=== PATIENT | male | born 1950 | race Caucasian/White ===

== ENCOUNTER → 2018-04-05 12:15 | Outpatient (CLI) | payer MEDICARE, OTHER, SELFPAY ==
[2018-04-05 13:37] LABS: Alanine Aminotransferase 43 IU/L (21-72); Albumin 4.6 g/dL (3.5-5.0); Albumin Globulin Ratio 1.8 (1.0-2.8); Alkaline Phosphatase 66 U/L (38-126); Aspartate Aminotransferase 30 IU/L (17-59); BUN Creatinine Ratio 12.5 (6-22); Bilirubin Total 0.6 mg/dL (0.2-1.3); Blood Urea Nitrogen 15 mg/dL (9-20); Calcium 9.9 mg/dL (8.4-10.2); Carbon Dioxide 30 mmol/L (22-32); Chloride 102 mmol/L (98-107); Cholesterol 163 mg/dL (140-199); Estimated Glomerular Filt Rate > 60.0 mL/min (>60); Globulin 2.5 g/dL (1.7-4.1); Glucose 92 mg/dL (80-110); HDL Cholesterol 62 mg/dL (40-60); HEMOLYSIS < 15 (0-50); LDL Cholesterol Calculated 75 mg/dL (<100); Potassium 4.8 mmol/L (3.4-5.1); Sodium 140 mmol/L (137-145); Total Protein 7.1 g/dL (6.3-8.2); Triglycerides 129 mg/dL (35-150)
[2018-04-05 13:46] LABS: Appearance Urine UA CLEAR; Bilirubin Urine UA NEGATIVE (NEGATIVE); Color Urine UA YELLOW; Glucose Urine UA NEGATIVE (Normal); Ketones Urine UA NEGATIVE (NEGATIVE); Leukocyte Esterase Urine UA NEGATIVE (NEGATIVE); Nitrite Urine UA Negative (Negative); Occult Blood Urine UA 1+ (Negative); Protein Urine UA NEGATIVE (Negative); Urobilinogen Urine UA 0.2 E.U./dL (0.2); pH Urine UA 5.5 (4.5-8.0)
[2018-04-05 14:07] LABS: Thyroid Stimulating Hormone 1.23 uIU/mL (0.47-4.68)
== END ==
PROVIDERS: Family Provider Family Medicine; PCP Family Medicine; Visit Provider Family Medicine
DX: E78.5 Hyperlipidemia, unspecified (principal); Z51.81 Encounter for therapeutic drug level monitoring; Z12.5 Encounter for screening for malignant neoplasm of prostate
CPT/HCPCS: 36415; 80053; 80061; 81003; 84153; 84443

== ENCOUNTER → 2019-01-02 07:03 | Outpatient (CLI) | payer MEDICARE, OTHER, SELFPAY ==
[2019-01-02 08:37] LABS: Alanine Aminotransferase 35 IU/L (21-72); Albumin 4.6 g/dL (3.5-5.0); Albumin Globulin Ratio 1.6 (1.0-2.8); Alkaline Phosphatase 70 U/L (38-126); Aspartate Aminotransferase 34 IU/L (17-59); BUN Creatinine Ratio 15.8 (6-22); Bilirubin Total 0.7 mg/dL (0.2-1.3); Blood Urea Nitrogen 19 mg/dL (9-20); Calcium 9.7 mg/dL (8.4-10.2); Carbon Dioxide 28 mmol/L (22-32); Chloride 103 mmol/L (98-107); Cholesterol 179 mg/dL (140-199); Estimated Glomerular Filt Rate > 60.0 mL/min (>60); Globulin 2.8 g/dL (1.7-4.1); Glucose 95 mg/dL (80-110); HDL Cholesterol 52 mg/dL (40-60); HEMOLYSIS < 15 (0-50); LDL Cholesterol Calculated 104 mg/dL (<100); Potassium 4.2 mmol/L (3.4-5.1); Sodium 140 mmol/L (137-145); Total Protein 7.4 g/dL (6.3-8.2); Triglycerides 117 mg/dL (35-150)
== END ==
PROVIDERS: Visit Provider Family Medicine
DX: E78.5 Hyperlipidemia, unspecified (principal); Z51.81 Encounter for therapeutic drug level monitoring
CPT/HCPCS: 36415; 80053; 80061

== ENCOUNTER → 2019-07-17 08:17 | Outpatient (CLI) | payer MEDICARE, OTHER, SELFPAY ==
[2019-07-17 08:50] LABS: Add Manual Diff / Slide Review NO; Basophils Absolute Auto 0 /uL (0-100); Basophils Percent Auto 0.2 % (0-2); Eosinophils Absolute Auto 100 /uL (0-450); Eosinophils Percent Auto 1.9 % (2-4); Hemoglobin 16.6 g/dL (13.5-17.5); Lymphocytes Absolute Auto 900 /uL (1100-4500); Lymphocytes Percent Auto 19.7 % (25-40); Mean Corpuscular HGB Conc 33.9 % (30-36); Mean Corpuscular Hemoglobin 32.1 PG (26-34); Mean Corpuscular Volume 94.9 fL (80-100); Monocytes Absolute Auto 400 /uL (0-900); Neutrophils Absolute Auto 3000 /uL (1500-7000); Neutrophils Percent Auto 69.2 % (50-75); Platelet Count 132 X10^3/uL (150-400); Red Blood Cell Count 5.17 X10^6/uL (4.5-5.9); Red Cell Distribution Width 14.6 % (11.6-14.8); White Blood Cell Count 4.4 X10^3/uL (4.5-11.0)
[2019-07-17 09:16] LABS: Alanine Aminotransferase 32 IU/L (<50); Albumin 4.6 g/dL (3.5-5.0); Albumin Globulin Ratio 1.7 (1.0-2.8); Alkaline Phosphatase 77 U/L (38-126); Aspartate Aminotransferase 35 IU/L (17-59); BUN Creatinine Ratio 13.1 (6-22); Bilirubin Total 0.7 mg/dL (0.2-1.3); Blood Urea Nitrogen 17 mg/dL (9-20); Calcium 9.9 mg/dL (8.4-10.2); Carbon Dioxide 30 mmol/L (22-32); Chloride 101 mmol/L (98-107); Cholesterol 184 mg/dL (140-199); Estimated Glomerular Filt Rate 54.6 mL/min (>60); Globulin 2.7 g/dL (1.7-4.1); Glucose 102 mg/dL (80-110); HDL Cholesterol 54 mg/dL (40-60); HEMOLYSIS < 15 (0-50); LDL Cholesterol Calculated 100 mg/dL (<100); Potassium 4.4 mmol/L (3.4-5.1); Sodium 139 mmol/L (137-145); Total Protein 7.3 g/dL (6.3-8.2); Triglycerides 151 mg/dL (35-150)
[2019-07-17 09:44] LABS: Thyroid Stimulating Hormone 2.02 uIU/mL (0.47-4.68)
[2019-07-17 09:45] LABS: Prostate Specific Antigen 2.11 ng/mL (0.10-4.00)
== END ==
PROVIDERS: PCP Family Medicine; Visit Provider Family Medicine
DX: Z12.5 Encounter for screening for malignant neoplasm of prostate (principal); E78.5 Hyperlipidemia, unspecified; G47.33 Obstructive sleep apnea (adult) (pediatric); G47.19 Other hypersomnia; Z79.899 Other long term (current) drug therapy
CPT/HCPCS: 36415; 80053; 80061; 84153; 84443; 85025

== ENCOUNTER 2019-12-29 19:29 | Emergency (ER) | payer MEDICARE, OTHER, SELFPAY ==
[2019-12-29 19:35] VITALS: BP 162/92; PULSE 95; RESP 16; TEMP 37.4; O2SAT 96; BMI 34.9
--- NOTE | 2019-12-29 19:40 | DI.RAD.S_ITS ---
PROCEDURE: XR RIBS RT MIN 3V W CXR 1V INDICATIONS: fall with right sided rib pain TECHNIQUE: 2 views of the right ribs were acquired, along with a single view chest. COMPARISON: [facility], , CHEST 1 VIEW, 09/14/2014, 10:42. FINDINGS: Surgical changes and devices: None. Bones and chest wall: Lateral right seventh rib fracture. A possible posterior right sixth rib fracture, minimally displaced. Lungs and pleura: No pleural effusions or pneumothorax. Lungs appear clear. Mediastinum: Mediastinal contours appear normal. Heart size is normal. IMPRESSION: Lateral right seventh rib fracture Possible minimally displaced posterior right sixth rib fracture, however this finding technically indeterminate No pneumothorax Dictated by: Miguel Rojas M.D. on 12/29/2019 at 20:28 Approved by: Miguel Rojas M.D. on 12/29/2019 at 20:32
--- NOTE | 2019-12-29 19:40 | DI.CT.S_ITS ---
PROCEDURE: CT CERVICAL SPINE WO CON INDICATIONS: fall with head injury TECHNIQUE: Noncontrast 3 mm thick sections acquired from the skull base to the T4 level. Sagittal and coronal reformats were then constructed. For radiation dose reduction, the following was used: automated exposure control, adjustment of mA and/or kV according to patient size. COMPARISON: None. FINDINGS: Image quality: Excellent. Bones: No fractures or dislocations. Visualized superior ribs are intact. Diffuse spondylosis, and reversal of the normal cervical lordosis. Prominent ossification of the posterior longitudinal ligament primarily from C5-C7. Soft tissues: Prevertebral soft tissues are normal in thickness. No paravertebral hematomas. No apical pneumothoraces. IMPRESSION: Cervical spondylosis and facet arthropathy. 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 on 12/29/2019 at 20:22 Approved by: Miguel Rojas M.D. on 12/29/2019 at 20:28
--- NOTE | 2019-12-29 19:40 | DI.CT.S_ITS ---
PROCEDURE: CT HEAD/BRAIN WO CON INDICATIONS: fall from height, head injury, aspirin TECHNIQUE: Noncontrast 4.5 mm thick angled axial sections acquired from the foramen magnum to the vertex, with coronal and sagittal reformats. For radiation dose reduction, the following was used: automated exposure control, adjustment of mA and/or kV according to patient size. COMPARISON: None. FINDINGS: Image quality: Excellent. CSF spaces: Basal cisterns are patent. No extra-axial fluid collections. The ventricles are symmetric in size and shape. Brain: No intracranial bleeds or masses. There is cerebral volume loss for age, with resultant ventricular and sulcal prominence. There are periventricular and deep white matter chronic small vessel ischemic changes. There is intracranial internal carotid artery atherosclerosis. Skull and face: Calvarium and visualized facial bones appear intact, without suspicious lesions. Right frontal scalp laceration and soft tissue swelling Sinuses: Visualized sinuses and mastoids are clear. IMPRESSION: No acute intracranial process. Right frontal scalp laceration and swelling. Dictated by: Miguel Rojas M.D. on 12/29/2019 at 20:18 Approved by: Miguel Rojas M.D. on 12/29/2019 at 20:22
--- NOTE | 2019-12-29 19:53 | ED.HEATRA ---
HPI - Head Injury General Chief complaint: Trauma Stated complaint: Fell And Cracked Head Open Time Seen by Provider: 12/29/19 19:37 Source: patient Mode of arrival: Ambulatory Limitations: no limitations History of Present Illness HPI Narrative: 69-year-old male nonsmoker with history of hyperlipidemia and obstructive sleep apnea takes aspirin daily and presents with a chief complaint of a head injury with some right-sided rib pain. He was about 8 ft up on a ladder when it slid to the side causing him to fall on his right side ribs and hit his head. He does not think he lost consciousness, if he did it was very brief. He denies nausea, vomiting. He has no shortness of breath or abdominal pain. He denies any extremity injury. Activated as modified trauma based on mechanism Related Data Home Medications Medication Instructions Recorded Confirmed ASPIRIN (Aspir-Low) 81 mg PO QDAY #0 tab 06/20/13 10/07/19 multivitamin [Multiple Vitamins] 1 tab PO QDAY #0 03/20/17 10/07/19 mupirocin 2 % topical ointment 1 applictn TOP BID PRN 01/06/19 10/07/19 ResMed AirSense 10 AutoSet CPAP #1 ea 10/07/19 10/07/19 Previous Rx's Medication Instructions Recorded ketoconazole 2 % topical cream 1 applictn TOP DAILY #30 gram 01/06/19 atorvastatin 20 mg tablet 20 mg PO Q DAY #90 tab 10/14/19 cephalexin [Keflex] 500 mg PO QID 7 Days #28 cap 12/29/19 hydrocodone-acetaminophen 1 tab PO Q4-6H PRN #10 tab 12/29/19 Allergies Allergy/AdvReac Type Severity Reaction Status Date / Time No Known Allergies Allergy Uncoded 10/07/19 09:30 Review of Systems Constitutional Constitutional: Denies chills, Denies fatigue, Denies fever(s), Denies frequent falls, Denies lethargy and Denies weakness Eyes Eyes: Denies change in vision, Denies eye discharge, Denies irritation and Denies loss of vision ENT Ears, Nose, Mouth, and Throat: Denies change in voice, Denies dizziness, Denies neck pain, Denies sore throat and Denies throat swelling Cardiovascular Cardiovascular: Reports chest pain, Denies irregular heart rhythm, Denies lightheadedness, Denies palpitations, Denies dyspnea, Denies dyspnea on exertion and Denies orthopnea Respiratory Respiratory: Denies cough, Denies dyspnea, Denies dyspnea on exertion and Denies wheezing Gastrointestinal Gastrointestinal: Denies abdominal pain, Denies change in bowel habits, Denies diarrhea, Denies nausea and Denies vomiting Genitourinary Genitourinary: Denies hematuria, Denies flank pain, Denies urinary incontinence and Denies urinary urgency Musculoskeletal Musculoskeletal: Denies back pain, Denies muscle weakness, Denies neck pain, Denies numbness and Denies tingling Integumentary/Breasts Skin/Breast: Denies pruritus, Denies erythema, Denies rash and Reports wounds Neurologic Neurologic: Denies behavioral changes, Denies confusion, Denies dizziness, Denies frequent falls, Denies loss of vision, Denies numbness, Denies tingling and Denies weakness Psychiatric Psychiatric: Denies anxiety, Denies behavioral changes, Denies confusion, Denies depression, Denies homicidal ideation and Denies suicidal ideation Endocrine Endocrine: Denies fatigue, Denies flushing and Denies palpitations Hematologic/Lymphatic Hematologic/Lymphatic: Denies easy bruising Allergic/Immunologic Allergic/Immunologic: Denies urticaria, Denies throat swelling and Denies wheezing Patient History Medical History Cataracts, bilateral (Chronic) Colon polyps (Resolved) Excessive daytime sleepiness (Inactive) Hx of gonorrhea (Resolved) Hyperlipemia (Chronic) Obstructive sleep apnea of adult (Chronic) Polio (Resolved 1954) Snoring (Inactive) Family History Family/Other Adopted Social History marital status: details: to [place], lives in [place] household members: spouse and adopted family (greatest challenge is ~14yoF from [facility]) lives independently: Yes caregiver/support person: No housing: house occupational status: employed (retired now, 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 Well-nourished, well-developed patient, in mild distress. GCS 15 HEAD:3cm deep laceration on R forehead with minimal active bleeding. No depressed fracture. EYES: Pupils equal round and reactive. Extraocular motions intact. No scleral icterus. No injection or drainage. ENT: Nose without bleeding, purulent drainage. No nasal septal hematoma. Throat without erythema, tonsillar hypertrophy or exudate. Airway patent. No hemotympanum NECK: Trachea midline. Non tender CARDIOVASCULAR: Regular rate and rhythm without murmurs, gallops, or rubs. RESPIRATORY: Clear to auscultation. Breath sounds equal bilaterally. No wheezes, rales, or rhonchi. R lateral ribs tender to palpation GASTROINTESTINAL: Abdomen soft, non-tender, nondistended. EXTREMITIES: No edema or joint tenderness. BACK: Nontender without deformity or crepitance. No flank tenderness. NEURO: AOx3. SKIN: No rash or erythema of visible areas Initial Vital Signs Initial Vital Signs: Vital Signs Temperature 99.3 F 12/29/19 19:35 Pulse Rate 95 H 12/29/19 19:35 Respiratory Rate 16 12/29/19 19:35 Blood Pressure 162/92 H 12/29/19 19:35 Pulse Oximetry 96 12/29/19 19:35 Procedures Laceration Repair Laceration 1: Site: face Side (If applicable): right Size (cm): 3 Description: linear Depth: involves muscle layer Local Anesthetic: lidocaine 1% and with bicarb Amount of anesthesia used (mL): 4 Pre-repair: wound explored, irrigated extensively and deep structures intact Skin layer closed with: nylon Size (cm): 6-0 Number of sutures: 7 Technique: simple, interrupted Subcutaneous layer closed with: vicryl Size: 5-0 Number of sutures: 3 Technique: simple, interrupted Scores GCS Nahed coma scale eye opening: Spontaneous Mulga coma scale verbal response: Orientated Nahed coma scale motor response: Obey commands Nahed coma scale total score: 15 Course Orders Ordered: ED Orders 12/29/19 19:40 CT cervical spine wo con Stat CT head/brain wo con Stat XR ribs RT min 3V w CXR1V Stat Discontinued Medications Cefazolin Sodium (Keflex 250 Mg Prepack) 1 bottle MISC SEEINSTR ONE Stop: 12/29/19 20:30 Last Admin: 12/29/19 20:38 Dose: 1 bottle Documented by: TIFFANIE Diphtheria/Tetanus/Acell Pertussis (Adacel) 0.5 ml IM .ONCE ONE Stop: 12/29/19 19:58 Last Admin: 12/29/19 20:04 Dose: 0.5 ml Documented by: TIFFANIE Lidocaine/Sodium Bicarbonate (Buffered Lidocaine 10 Ml Syr) 10 ml INJ NOW ONE Stop: 12/29/19 19:58 Last Admin: 12/29/19 20:04 Dose: 10 ml Documented by: TIFFANIE Vital Signs Vital signs: Vital Signs - 8 hr 12/29/19 19:35 12/29/19 20:44 Temperature 99.3 F Pulse Rate 95 H 77 Respiratory Rate 16 16 Blood Pressure 162/92 H 123/77 Pulse Oximetry 96 97 MDM - Head Injury Imaging Data CT scan - head: Radiologist's Impression: [address] [address] [address] Scan Report Signed Patient: Baldemar Andersen R#: [id number] : 9Acct:[id number] Age/Sex: 69 / MDate of Service: 12/29/19 Loc: ED Accession Number: [id number] Procedure: CT head/brain wo con Ordering Provider: Rubén Melgar D.O. PROCEDURE: CT HEAD/BRAIN WO CON INDICATIONS: fall from height, head injury, aspirin TECHNIQUE: Noncontrast 4.5 mm thick angled axial sections acquired from the foramen magnum to the vertex, with coronal and sagittal reformats. For radiation dose reduction, the following was used: automated exposure control, adjustment of mA and/or kV according to patient size. COMPARISON: None. FINDINGS: Image quality: Excellent. CSF spaces: Basal cisterns are patent. No extra-axial fluid collections. The ventricles are symmetric in size and shape. Brain: No intracranial bleeds or masses. There is cerebral volume loss for age, with resultant ventricular and sulcal prominence. There are periventricular and deep white matter chronic small vessel ischemic changes. There is intracranial internal carotid artery atherosclerosis. Skull and face: Calvarium and visualized facial bones appear intact, without suspicious lesions. Right frontal scalp laceration and soft tissue swelling Sinuses: Visualized sinuses and mastoids are clear. IMPRESSION: No acute intracranial process. Right frontal scalp laceration and swelling. Dictated by: Miguel Rojas M.D. on 12/29/2019 at 20:18 Approved by: Miguel Rojas M.D. on 12/29/2019 at 20:22 CT - cervical spine: Radiologist's Impression: [facility] DATE TYPE STATUS AUTHOR Hx 12/29/19 19:40 Migule Rojas 12/29/19 19:40 BobMiguel 12/29/19 19:40 Miguel Rojas Wilfred H 69, M109/11/1949 [facility] 172.72cm 104.326kg BMI: 35.0kg/m? Trauma Search Chart Preferred Name NF - Not included in interaction checking ONSET 12/29/19 20:44 Baldemar Andersen 69 M 1950 [place] [address] CT Scan Report Signed Patient: Baldemar Andersen HMR#: [id number] : 1950cct:[id number] Age/Sex: 69 / MDate of Service: 12/29/19 Loc: ED Accession Number: [id number] Procedure: CT cervical spine wo con Ordering Provider: Rubén Melgar D.O. PROCEDURE: CT CERVICAL SPINE WO CON INDICATIONS: fall with head injury TECHNIQUE: Noncontrast 3 mm thick sections acquired from the skull base to the T4 level. Sagittal and coronal reformats were then constructed. For radiation dose reduction, the following was used: automated exposure control, adjustment of mA and/or kV according to patient size. COMPARISON: None. FINDINGS: Image quality: Excellent. Bones: No fractures or dislocations. Visualized superior ribs are intact. Diffuse spondylosis, and reversal of the normal cervical lordosis. Prominent ossification of the posterior longitudinal ligament primarily from C5-C7. Soft tissues: Prevertebral soft tissues are normal in thickness. No paravertebral hematomas. No apical pneumothoraces. IMPRESSION: Cervical spondylosis and facet arthropathy. 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 on 12/29/2019 at 20:22 Approved by: Miguel Rojas M.D. on 12/29/2019 at 20:28 Chest x-ray: Radiologist's Impression: Chart Viewer Diagnostics DATE TYPE STATUS AUTHOR Blanca 12/29/19 19:40 Miguel Rojas 12/29/19 19:40 Miguel Rojas 12/29/19 19:40 Miguel Rojas Wilfred H 69, M109/11/1949 [facility], [facility] ED 172.72cm 104.326kg BMI: 35.0kg/m? Trauma Search Chart Preferred Name NF - Not included in interaction checking ONSET 12/29/19 20:44 Baldemar Andersen H 69 M [address] [address] XRay Report Signed Patient: Baldemar Andersen HMR#: [id number] : 1950cct:[id number] Age/Sex: 69 / MDate of Service: 12/29/19 Loc: ED Accession Number: [id number] Procedure: XR ribs RT min 3V w CXR1V Ordering Provider: Rubén Melgar D.O. PROCEDURE: XR RIBS RT MIN 3V W CXR 1V INDICATIONS: fall with right sided rib pain TECHNIQUE: 2 views of the right ribs were acquired, along with a single view chest. COMPARISON: [facility], , CHEST 1 VIEW, 09/14/2014, 10:42. FINDINGS: Surgical changes and devices: None. Bones and chest wall: Lateral right seventh rib fracture. A possible posterior right sixth rib fracture, minimally displaced. Lungs and pleura: No pleural effusions or pneumothorax. Lungs appear clear. Mediastinum: Mediastinal contours appear normal. Heart size is normal. IMPRESSION: Lateral right seventh rib fracture Possible minimally displaced posterior right sixth rib fracture, however this finding technically indeterminate No pneumothorax Dictated by: Miguel Rojas M.D. on 12/29/2019 at 20:28 Approved by: Miguel Rojas M.D. on 12/29/2019 at 20:32 Discharge Plan Departure Patient Disposition: Home Clinical Impression: Laceration of scalp Qualifiers: Encounter type: initial encounter Qualified Code(s): S01.01XA - Laceration without foreign body of scalp, initial encounter Right rib fracture Qualifiers: Encounter type: initial encounter Rib fracture type: single rib Fracture type: closed Qualified Code(s): S22.31XA - Fracture of one rib, right side, initial encounter for closed fracture Discharge Date/Time: 12/29/19 20:45 Instructions: DI for Trauma Activity Restrictions/Additional Instructions: *You have been diagnosed with [fall with scalp laceration and right rib fracture] *What to do: *Take medications as directed *Follow up with your primary care provider in 2-3 days, call for an appointment. Let them know you were seen in the Emergency Department and that we ask that you be seen in follow up *Return to ER if you should have any new, worsening or concerning symptoms, such as [ ] Please keep the wound clean and dry to the best of your ability. Please monitor for signs of infection such as redness to the skin or increasing pain. Have the sutures removed by your doctor in about 7 days. If you are unable to get into your doctor, we would be happy to remove the sutures in that same timeframe. Prescriptions: New cephalexin [Keflex] 500 mg capsule 500 mg PO QID 7 Days Qty: 28 RF: 0 hydrocodone-acetaminophen 5-325 mg tablet 1 tab PO Q4-6H PRN (Reason: pain) Qty: 10 RF: 0 No Action ASPIRIN (Aspir-Low) 81 mg PO QDAY Qty: 0 RF: 0 multivitamin [Multiple Vitamins] 1 EACH tablet 1 tab PO QDAY Qty: 0 RF: 0 atorvastatin [Lipitor] 20 mg tablet 20 mg PO Q DAY Qty: 90 RF: 0 mupirocin 2 % ointment 1 applictn TOP BID PRNRF: 0 ketoconazole 2 % cream 1 applictn TOP DAILY Qty: 30 RF: 2 (DME) ResMed AirSense 10 AutoSet CPAP Qty: 1 RF: 0
[2019-12-29] MEDS: TET,DIPH,PERTUSS(ACELL),VAC/PF 0.5 ML SYRINGE IM (20:04)
[2019-12-29] MEDS: LIDO 1%/SOD BICARB 8.4% (10ML) 10 ML SYRINGE INJ (20:04)
[2019-12-29] MEDS: cephALEXin 250 MG PREPACK 1 BOTTLE MISC (20:38)
[2019-12-29 20:44] VITALS: BP 123/77; PULSE 77; RESP 16; O2SAT 97
== END 2019-12-29 20:45 | disposition home or self-care (01) ==
PROVIDERS: Emergency Provider Emergency Medicine
DX: S01.81XA Laceration without foreign body of other part of head, initial encounter (principal); S22.31XA Fracture of one rib, right side, initial encounter for closed fracture; W11.XXXA Fall on and from ladder, initial encounter; Z79.82 Long term (current) use of aspirin; Z23 Encounter for immunization; E78.5 Hyperlipidemia, unspecified
CPT/HCPCS: 13132; 70450; 71101; 72125; 90471; 99284; 90715

== ENCOUNTER → 2020-03-11 07:28 | Outpatient (CLI) | payer MEDICARE, OTHER, SELFPAY ==
[2020-03-11 08:30] LABS: Add Manual Diff / Slide Review NO; Basophils Absolute Auto 0 /uL (0-100); Basophils Percent Auto 0.4 % (0-2); Eosinophils Absolute Auto 100 /uL (0-450); Eosinophils Percent Auto 2.2 % (2-4); Hematocrit 46.1 % (41-53); Hemoglobin 15.7 g/dL (13.5-17.5); Lymphocytes Absolute Auto 900 /uL (1100-4500); Lymphocytes Percent Auto 21.8 % (25-40); Mean Corpuscular Hemoglobin 32.4 PG (26-34); Mean Corpuscular Volume 95.3 fL (80-100); Monocytes Absolute Auto 400 /uL (0-900); Monocytes Percent Auto 9.3 % (3-14); Neutrophils Absolute Auto 2700 /uL (1500-7000); Neutrophils Percent Auto 66.3 % (50-75); Platelet Count 128 X10^3/uL (150-400); Red Blood Cell Count 4.84 X10^6/uL (4.5-5.9); Red Cell Distribution Width 14.8 % (11.6-14.8); White Blood Cell Count 4.1 X10^3/uL (4.5-11.0)
[2020-03-11 08:41] LABS: Alanine Aminotransferase 31 IU/L (<50); Albumin 4.3 g/dL (3.5-5.0); Albumin Globulin Ratio 1.6 (1.0-2.8); Alkaline Phosphatase 87 U/L (38-126); Aspartate Aminotransferase 34 IU/L (17-59); BUN Creatinine Ratio 15.6 (6-22); Bilirubin Total 0.5 mg/dL (0.2-1.3); Blood Urea Nitrogen 19 mg/dL (9-20); Calcium 9.6 mg/dL (8.4-10.2); Carbon Dioxide 29 mmol/L (22-32); Chloride 104 mmol/L (98-107); Cholesterol 171 mg/dL (140-199); Estimated Glomerular Filt Rate 58.7 mL/min (>60); Globulin 2.7 g/dL (1.7-4.1); Glucose 108 mg/dL (80-110); HDL Cholesterol 55 mg/dL (40-60); HEMOLYSIS < 15 (0-50); LDL Cholesterol Calculated 91 mg/dL (<100); Potassium 4.1 mmol/L (3.4-5.1); Sodium 140 mmol/L (137-145); Triglycerides 126 mg/dL (35-150)
== END ==
PROVIDERS: PCP Family Medicine; Referring Provider Family Medicine; Visit Provider Family Medicine
DX: E78.5 Hyperlipidemia, unspecified (principal); G47.33 Obstructive sleep apnea (adult) (pediatric)
CPT/HCPCS: 36415; 80053; 80061; 85025

== ENCOUNTER → 2020-08-30 08:12 | Outpatient (CLI) | payer MEDICARE, OTHER, SELFPAY ==
[2020-08-30 09:33] LABS: Add Manual Diff / Slide Review NO; Basophils Absolute Auto 0 /uL (0-100); Basophils Percent Auto 0.4 % (0-2); Eosinophils Absolute Auto 100 /uL (0-450); Eosinophils Percent Auto 1.5 % (2-4); Hematocrit 44.4 % (41-53); Lymphocytes Absolute Auto 900 /uL (1100-4500); Lymphocytes Percent Auto 21.4 % (25-40); Mean Corpuscular HGB Conc 33.8 % (30-36); Mean Corpuscular Hemoglobin 32.1 PG (26-34); Mean Corpuscular Volume 94.9 fL (80-100); Monocytes Absolute Auto 400 /uL (0-900); Monocytes Percent Auto 9.1 % (3-14); Neutrophils Absolute Auto 2700 /uL (1500-7000); Neutrophils Percent Auto 67.6 % (50-75); Platelet Count 121 X10^3/uL (150-400); Red Blood Cell Count 4.68 X10^6/uL (4.5-5.9); Red Cell Distribution Width 14.7 % (11.6-14.8)
[2020-08-30 09:47] LABS: Alanine Aminotransferase 25 IU/L (<50); Albumin 4.2 g/dL (3.5-5.0); Albumin Globulin Ratio 1.7 (1.0-2.8); Alkaline Phosphatase 72 U/L (38-126); Aspartate Aminotransferase 28 IU/L (17-59); BUN Creatinine Ratio 13.3 (6-22); Bilirubin Total 0.6 mg/dL (0.2-1.3); Blood Urea Nitrogen 17 mg/dL (9-20); Calcium 9.5 mg/dL (8.4-10.2); Carbon Dioxide 30 mmol/L (22-32); Chloride 104 mmol/L (98-107); Cholesterol 163 mg/dL (140-199); Estimated Glomerular Filt Rate 55.4 mL/min (>60); Globulin 2.5 g/dL (1.7-4.1); Glucose 99 mg/dL (80-110); HDL Cholesterol 57 mg/dL (40-60); HEMOLYSIS < 15 (0-50); LDL Cholesterol Calculated 79 mg/dL (<100); Potassium 4.2 mmol/L (3.4-5.1); Sodium 138 mmol/L (137-145); Total Protein 6.7 g/dL (6.3-8.2); Triglycerides 133 mg/dL (35-150)
== END ==
PROVIDERS: PCP Family Medicine; Referring Provider Family Medicine; Visit Provider Family Medicine
DX: E78.5 Hyperlipidemia, unspecified (principal); G47.33 Obstructive sleep apnea (adult) (pediatric)
CPT/HCPCS: 36415; 80053; 80061; 85025

== ENCOUNTER → 2021-10-01 11:41 | Outpatient (CLI) | payer MEDICARE, OTHER, SELFPAY ==
[2021-10-01 12:08] LABS: COVID19 -Nasal RAPID POSITIVE (Negative)
== END ==
PROVIDERS: PCP Family Medicine; Visit Provider Physician Assistant
DX: Z20.822 Contact with and (suspected) exposure to COVID-19 (principal)
CPT/HCPCS: 87635

== ENCOUNTER → 2021-10-11 08:19 | Outpatient (CLI) | payer MEDICARE, OTHER, SELFPAY ==
[2021-10-11 11:06] LABS: Add Manual Diff / Slide Review NO; Basophils Absolute Auto 0 /uL (0-100); Basophils Percent Auto 0.3 % (0-2); Eosinophils Absolute Auto 0 /uL (0-450); Eosinophils Percent Auto 1.2 % (2-4); Hematocrit 44.1 % (41-53); Hemoglobin 15.1 g/dL (13.5-17.5); Lymphocytes Absolute Auto 700 /uL (1100-4500); Lymphocytes Percent Auto 19.4 % (25-40); Mean Corpuscular HGB Conc 34.3 % (30-36); Mean Corpuscular Hemoglobin 32.2 PG (26-34); Mean Corpuscular Volume 93.8 fL (80-100); Monocytes Absolute Auto 400 /uL (0-900); Monocytes Percent Auto 10.7 % (3-14); Neutrophils Absolute Auto 2600 /uL (1500-7000); Neutrophils Percent Auto 68.4 % (50-75); Platelet Count 142 X10^3/uL (150-400); Red Blood Cell Count 4.71 X10^6/uL (4.5-5.9); Red Cell Distribution Width 14.9 % (11.6-14.8); White Blood Cell Count 3.7 X10^3/uL (4.5-11.0)
[2021-10-11 11:19] LABS: Alanine Aminotransferase 43 IU/L (<50); Albumin 4.2 g/dL (3.5-5.0); Albumin Globulin Ratio 1.7 (1.0-2.8); Alkaline Phosphatase 76 U/L (38-126); Aspartate Aminotransferase 37 IU/L (17-59); BUN Creatinine Ratio 11.6 (6-22); Bilirubin Total 0.5 mg/dL (0.2-1.3); Blood Urea Nitrogen 14 mg/dL (9-20); Calcium 9.7 mg/dL (8.4-10.2); Carbon Dioxide 29 mmol/L (22-32); Chloride 104 mmol/L (98-107); Estimated Glomerular Filt Rate 58.9 mL/min (>60); Globulin 2.5 g/dL (1.7-4.1); Glucose 101 mg/dL (80-110); HEMOLYSIS < 15 (0-50); Potassium 4.6 mmol/L (3.4-5.1); Sodium 139 mmol/L (137-145); Total Protein 6.7 g/dL (6.3-8.2)
== END ==
PROVIDERS: PCP Family Medicine; Referring Provider Family Medicine; Visit Provider Family Medicine
DX: E78.5 Hyperlipidemia, unspecified (principal)
CPT/HCPCS: 36415; 80053; 85025

== ENCOUNTER 2021-10-13 09:30 | Emergency (ER) | payer MEDICARE, OTHER, SELFPAY ==
[2021-10-13] VITALS (64 sets, daily range): BP systolic 75–182; BP diastolic 46–103; PULSE 44–93; RESP 7–24; TEMP 36.6; O2SAT 94–100; BMI 33.4
--- NOTE | 2021-10-13 09:31 | DI.RAD.S_ITS ---
PROCEDURE: XR CHEST 1V INDICATIONS: Chest tightness TECHNIQUE: One view of the chest was acquired. COMPARISON: [facility], , CHEST 1 VIEW, 09/14/2014, 10:42. FINDINGS: Surgical changes and devices: None. Lungs and pleura: Chronic mild elevation of right hemidiaphragm is seen. No focal infiltrate. No pleural effusions or pneumothorax. Mediastinum: Mediastinal contours appear normal. Heart size is normal. Bones and chest wall: No suspicious bony lesions. Overlying soft tissues appear unremarkable. IMPRESSION: No acute cardiopulmonary pathology. Dictated by: Amador Tomas M.D. on 10/13/2021 at 10:29 Approved by: Amador Tomas M.D. on 10/13/2021 at 10:29
--- NOTE | 2021-10-13 09:50 | ED.CHESTPAIN ---
HPI - Chest Pain General Chief Complaint: Chest Pain Stated Complaint: Tightness in chest Time Seen by Provider: 10/13/21 09:30 Source: patient Mode of arrival: Ambulatory Limitations: no limitations History of Present Illness HPI narrative: 71-year-old male who is here for evaluation of tightness in his chest. Patient states that the symptoms started approximately 1 hour ago. He also has pain in his jaw all. He describes it as a tightness. Not worse with taking a deep breath. He has no shortness of breath. No cough. No radiation to his arm or his back. No nausea vomiting. No abdominal pain. He states that he had similar symptoms on Sunday evening that he had to sit down and rest but it eventually got better on its own. He was positive for COVID approximately 10 days ago. No cardiovascular history. Is on high cholesterol medicine but no blood pressure medication. Has not tried anything for symptoms prior to arrival. Related Data Home Medications Medication Instructions Recorded Confirmed ASPIRIN (Aspir-Low) 81 mg PO QDAY #0 tab 06/20/13 10/01/21 multivitamin (Multiple Vitamins) 1 tab PO QDAY #0 03/20/17 10/01/21 mupirocin 2 % topical ointment 1 applictn TOP BID PRN 01/06/19 10/01/21 ResMed AirSense 10 AutoSet CPAP #1 ea 10/07/19 10/01/21 Previous Rx's Medication Instructions Recorded ketoconazole 2 % topical cream 1 applic TOP DAILY #60 g 09/08/20 atorvastatin 20 mg tablet (Lipitor) 20 mg PO Q DAY #90 tab 08/29/21 Allergies Allergy/AdvReac Type Severity Reaction Status Date / Time No Known Drug Allergies Allergy Verified 10/13/21 09:38 Review of Systems Review of Systems ROS Unobtainable: All systems reviewed & are unremarkable except as noted in HPI and below Constitutional Constitutional: Denies fever(s) and Denies headache(s) ENT Ears, Nose, Mouth, and Throat: Denies headache(s) Cardiovascular Cardiovascular: Reports as per HPI and Reports system reviewed and no additional complaints, except as documented Respiratory Respiratory: Reports as per HPI and Reports system reviewed and no additional complaints, except as documented Gastrointestinal Gastrointestinal: Reports as per HPI and Reports system reviewed and no additional complaints, except as documented Musculoskeletal Musculoskeletal: Reports system reviewed and no additional complaints, except as documented and Reports as per HPI Integumentary/Breasts Comments: Does have a rash that he is under the care of dermatology. Neurologic Neurologic: Denies headache(s) Endocrine Endocrine: Reports system reviewed and no additional complaints, except as documented Hematologic/Lymphatic On Anticoagulants: No Allergic/Immunologic Allergic/Immunologic: Reports system reviewed and no additional complaints, except as documented Patient History Medical History Actinic keratosis due to exposure to sunlight Actinic keratosis of left cheek Actinic keratosis of right side of forehead Arthritis of finger of right hand Cataracts, bilateral Colon polyps Excessive daytime sleepiness Hx of gonorrhea Hyperlipemia Obstructive sleep apnea of adult Pain of finger joint Polio (1954) Snoring Family History Family/Other Adopted Mother Diabetes mellitus Father Heart disease Congestive heart failure Social History marital status: details: to Shilpa, lives in [place] household members: spouse and adopted family (greatest challenge is ~15yoF from [facility]) lives independently: Yes caregiver/support person: No housing: house occupational status: employed (retired now, 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) Smoking Status: Never smoker alcohol intake: current (Occasional) substance use type: does not use Smoking Status: Never smoker alcohol intake frequency: holidays/special occasions only Substance Use Type: does not use Exam Initial Vital Signs Initial Vital Signs: Vital Signs Temperature 97.8 F 10/13/21 09:32 Pulse Rate 73 10/13/21 09:32 Respiratory Rate 18 10/13/21 09:32 Blood Pressure 182/93 H 10/13/21 09:32 Pulse Oximetry 96 10/13/21 09:32 Const General: cooperative and diaphoretic HENMT Head: normal to inspection and normocephalic Eyes General: appearance normal, both eyes and all related structures Neck Neck: normal visual inspection Chest Chest: normal inspection of the chest Resp Effort & Inspection: normal respiratory effort Auscultation: clear to auscultation bilaterally Cardio Rate: regular rate Rhythm: regular rhythm GI Palpation: soft and No tender Skin Other: Patient with a rash located across his forehead. No vesicles. No pustules. Neuro General: patient alert, patient awake, patient oriented x3, gait normal and moves all extremities Speech: speech normal Motor: muscle tone normal throughout Extrem General: normal to inspection and capillary refill normal Psych Appearance: grossly normal and well kempt Scores GCS Nahed coma scale eye opening: Spontaneous Nahed coma scale verbal response: Orientated Cabins coma scale motor response: Obey commands Nahed coma scale total score: 15 Course Orders Ordered: ED Orders 10/13/21 09:31 XR chest 1V Stat EKG-12 Lead Stat 10/13/21 09:32 Complete Blood Count AUTO DIFF Stat Comprehensive Metabolic Panel Stat Lipase Stat Troponin & CK Cardiac Panel Stat 10/13/21 09:49 Partial Thromboplastin Time Stat Prothrombin Time INR Stat 10/13/21 09:59 EKG-12 Lead Stat 10/13/21 10:02 COVID19 -Nasal swab/Pre-Proc Stat 10/13/21 11:27 Troponin I Stat Discontinued Medications Aspirin (Aspirin 81 Mg Chew Tab) 324 mg PO NOW ONE Stop: 10/13/21 09:49 Last Admin: 10/13/21 09:53 Dose: 324 mg Documented by: TERRI Heparin Sodium (Porcine) (Heparin 5,000 Unit/Ml Vial) 5,000 unit IV NOW ONE Stop: 10/13/21 10:07 Last Admin: 10/13/21 10:20 Dose: 5,000 unit Documented by: FARZANA Sodium Chloride (Normal Saline 0.9%) 1,000 mls @ 125 mls/hr IV CONT ARPITA Last Infusion: 10/13/21 13:50 Dose: 0 mls/hr Documented by: Admin: 10/13/21 09:53 Dose: 125 mls/hr Documented by: TERRI Heparin Sodium/Dextrose (Heparin Drip) 25,000 unit in 500 mls @ 20 mls/hr IV CONT ARPITA; Protocol Last Titration: 10/13/21 13:49 Dose: 0 units/hr, 0 mls/hr Documented by: Admin: 10/13/21 10:21 Dose: 1,000 units/hr, 20 mls/hr Documented by: FARZANA Nitroglycerin (Nitroglycerin 0.4 Mg Sl Tab) 0.4 mg SL [id number] PRN PRN Reason: Chest Pain Last Admin: 10/13/21 10:04 Dose: 0.4 mg Documented by: Admin: 10/13/21 09:53 Dose: 0.4 mg Documented by: XIOMYM Vital Signs Vital signs: Vital Signs - 8 hr 10/13/21 09:32 10/13/21 09:36 10/13/21 09:45 Temperature 97.8 F Pulse Rate 73 72 70 Respiratory Rate 18 19 18 Blood Pressure 182/93 H Pulse Oximetry 96 96 96 10/13/21 09:53 10/13/21 09:58 10/13/21 10:00 Temperature Pulse Rate 68 71 80 Respiratory Rate 20 18 Blood Pressure 182/93 H 156/103 H 147/100 H Pulse Oximetry 98 97 10/13/21 10:04 10/13/21 10:12 10/13/21 10:14 Temperature Pulse Rate 74 69 Respiratory Rate 17 Blood Pressure 147/100 H 107/56 L Pulse Oximetry 95 10/13/21 10:15 10/13/21 10:16 10/13/21 10:18 Temperature Pulse Rate 67 60 53 L Respiratory Rate 14 15 12 Blood Pressure 110/60 Pulse Oximetry 96 97 97 10/13/21 10:19 10/13/21 10:20 10/13/21 10:22 Temperature Pulse Rate 51 L 53 L 64 Respiratory Rate 11 L 9 L 10 L Blood Pressure 75/46 L 111/60 Pulse Oximetry 98 96 97 10/13/21 10:24 10/13/21 10:26 10/13/21 10:28 Temperature Pulse Rate 69 68 69 Respiratory Rate 9 L 11 L 17 Blood Pressure 117/73 Pulse Oximetry 98 96 96 10/13/21 10:30 10/13/21 10:32 10/13/21 10:34 Temperature Pulse Rate 73 74 76 Respiratory Rate 14 15 12 Blood Pressure 113/75 Pulse Oximetry 96 94 97 10/13/21 10:36 10/13/21 10:38 10/13/21 10:40 Temperature Pulse Rate 71 68 66 Respiratory Rate 12 15 10 L Blood Pressure Pulse Oximetry 96 96 97 10/13/21 10:42 10/13/21 10:44 10/13/21 10:45 Temperature Pulse Rate 64 66 66 Respiratory Rate 7 L 8 L Blood Pressure 118/80 Pulse Oximetry 97 97 98 10/13/21 10:46 10/13/21 10:48 10/13/21 10:50 Temperature Pulse Rate 66 68 68 Respiratory Rate 11 L Blood Pressure Pulse Oximetry 98 97 97 10/13/21 10:52 10/13/21 10:54 10/13/21 10:56 Temperature Pulse Rate 65 64 44 L Respiratory Rate 10 L 11 L Blood Pressure Pulse Oximetry 98 98 98 10/13/21 10:57 10/13/21 10:58 10/13/21 11:00 Temperature Pulse Rate 81 82 77 Respiratory Rate 10 L 11 L 17 Blood Pressure 106/69 115/73 Pulse Oximetry 97 98 99 10/13/21 11:02 10/13/21 11:04 10/13/21 11:06 Temperature Pulse Rate 62 62 61 Respiratory Rate 13 10 L 14 Blood Pressure Pulse Oximetry 99 98 98 10/13/21 11:08 10/13/21 11:10 10/13/21 11:12 Temperature Pulse Rate 64 70 67 Respiratory Rate 13 12 11 L Blood Pressure 123/77 120/77 Pulse Oximetry 98 98 98 10/13/21 11:14 10/13/21 11:15 10/13/21 11:16 Temperature Pulse Rate 67 68 71 Respiratory Rate 11 L 12 14 Blood Pressure 127/83 Pulse Oximetry 98 99 98 10/13/21 11:18 10/13/21 11:20 10/13/21 11:25 Temperature Pulse Rate 70 69 75 Respiratory Rate 14 13 11 L Blood Pressure 115/75 115/76 Pulse Oximetry 98 98 98 10/13/21 11:30 10/13/21 11:35 10/13/21 11:40 Temperature Pulse Rate 74 72 77 Respiratory Rate 14 15 13 Blood Pressure 124/82 136/86 125/79 Pulse Oximetry 99 98 98 10/13/21 11:45 10/13/21 11:50 10/13/21 11:55 Temperature Pulse Rate 75 72 75 Respiratory Rate 10 L 14 Blood Pressure 121/79 126/78 129/81 Pulse Oximetry 99 98 99 10/13/21 12:00 10/13/21 12:05 10/13/21 12:10 Temperature Pulse Rate 69 73 72 Respiratory Rate 15 13 Blood Pressure 130/83 128/83 130/85 Pulse Oximetry 99 99 98 10/13/21 12:15 10/13/21 12:20 10/13/21 12:25 Temperature Pulse Rate 70 69 76 Respiratory Rate 12 16 24 Blood Pressure 128/82 131/87 137/95 H Pulse Oximetry 98 99 99 10/13/21 12:30 10/13/21 12:49 10/13/21 13:00 Temperature Pulse Rate 93 H 76 83 Respiratory Rate 23 23 12 Blood Pressure 136/85 141/86 H Pulse Oximetry 100 10/13/21 13:30 Temperature Pulse Rate 84 Respiratory Rate 14 Blood Pressure 144/86 H Pulse Oximetry 99 MDM - Chest Pain Medical Records Data Attestation: I reviewed the patient's medical records. Lab Data Attestation: I reviewed the patient's lab results. Result diagrams: 10/13/21 09:32 10/13/21 09:32 Labs: Lab Results 10/13/21 10/13/21 10/13/21 Range/Units 09:32 09:32 09:49 WBC 5.8 (4.5-11.0) X10^3/uL RBC 4.84 (4.5-5.9) X10^6/uL Hgb 15.6 (13.5-17.5) g/dL Hct 45.5 (41-53) % MCV 94.0 (80-100) fL MCH 32.3 (26-34) PG MCHC 34.3 (30-36) % RDW 14.8 (11.6-14.8) % Plt Count 127 L (150-400) X10^3/uL Neut % (Auto) 61.6 (50-75) % Lymph % (Auto) 24.1 L (25-40) % [place] % (Auto) 13.0 (3-14) % Eos % (Auto) 0.8 L (2-4) % Baso % (Auto) 0.5 (0-2) % Neut # (Auto) 3600 (5133-4396) /uL Lymph # (Auto) 1400 (5361-9527) /uL [place] # (Auto) 800 (0-900) /uL Eos # (Auto) 0 (0-450) /uL Baso # (Auto) 0 (0-100) /uL PT 11.5 (10.1-12.7) SECONDS INR 1.0 (0.9-1.3) APTT 31 (26.4-36.2) SECONDS Sodium 139 (137-145) mmol/L Potassium 4.0 (3.4-5.1) mmol/L Chloride 105 (98-107) mmol/L Carbon Dioxide 26 (22-32) mmol/L BUN 15 (9-20) mg/dL Creatinine 1.24 (0.66-1.25) mg/dL Estimated GFR 57.3 L (>60) mL/min BUN/Creatinine Ratio 12.1 (6-22) Glucose 108 (80-110) mg/dL Calcium 9.7 (8.4-10.2) mg/dL Total Bilirubin 0.6 (0.2-1.3) mg/dL AST 41 (17-59) IU/L ALT 46 (<50) IU/L Alkaline Phosphatase 79 (38-126) U/L Total Creatine Kinase 278 H (55-170) U/L CK-MB (CK-2) 4.28 H (<2.37) ng/mL CK-MB (CK-2) Rel Index 1.5 (1.5-5.0) % Troponin I 0.264 H* (0.01-0.034) ng/mL Total Protein 7.7 (6.3-8.2) g/dL Albumin 4.6 (3.5-5.0) g/dL Globulin 3.1 (1.7-4.1) g/dL Albumin/Globulin Ratio 1.5 (1.0-2.8) Lipase 137 (23-300) U/L SARS-CoV-2 (PCR) (Negative) 10/13/21 10/13/21 Range/Units 10:02 11:27 WBC (4.5-11.0) X10^3/uL RBC (4.5-5.9) X10^6/uL Hgb (13.5-17.5) g/dL Hct (41-53) % MCV (80-100) fL MCH (26-34) PG MCHC (30-36) % RDW (11.6-14.8) % Plt Count (150-400) X10^3/uL Neut % (Auto) (50-75) % Lymph % (Auto) (25-40) % [place] % (Auto) (3-14) % Eos % (Auto) (2-4) % Baso % (Auto) (0-2) % Neut # (Auto) (8125-2356) /uL Lymph # (Auto) (1226-5910) /uL [place] # (Auto) (0-900) /uL Eos # (Auto) (0-450) /uL Baso # (Auto) (0-100) /uL PT (10.1-12.7) SECONDS INR (0.9-1.3) APTT (26.4-36.2) SECONDS Sodium (137-145) mmol/L Potassium (3.4-5.1) mmol/L Chloride (98-107) mmol/L Carbon Dioxide (22-32) mmol/L BUN (9-20) mg/dL Creatinine (0.66-1.25) mg/dL Estimated GFR (>60) mL/min BUN/Creatinine Ratio (6-22) Glucose (80-110) mg/dL Calcium (8.4-10.2) mg/dL Total Bilirubin (0.2-1.3) mg/dL AST (17-59) IU/L ALT (<50) IU/L Alkaline Phosphatase (38-126) U/L Total Creatine Kinase (55-170) U/L CK-MB (CK-2) (<2.37) ng/mL CK-MB (CK-2) Rel Index (1.5-5.0) % Troponin I 0.890 H* (0.01-0.034) ng/mL Total Protein (6.3-8.2) g/dL Albumin (3.5-5.0) g/dL Globulin (1.7-4.1) g/dL Albumin/Globulin Ratio (1.0-2.8) Lipase (23-300) U/L SARS-CoV-2 (PCR) Positive H (Negative) Imaging Data Chest x-ray: Radiologist's Impression: [address] [address] XRay Report Signed Patient: Baldemar Andersen MR#: [id number] : 1950 Acct:[id number] Age/Sex: 71 / M Date of Service: 10/13/21 Loc: ED Accession Number: [id number] ?? Procedure: XR chest 1V Ordering Provider: Mehran Peterson D.O. PROCEDURE:? XR CHEST 1V ? INDICATIONS:? Chest tightness ? TECHNIQUE:? One view of the chest was acquired.? ? COMPARISON:? [facility], , CHEST 1 VIEW, 09/14/2014, 10:42. ? FINDINGS:? ? Surgical changes and devices:? None.? ? Lungs and pleura:? Chronic mild elevation of right hemidiaphragm is seen.? No focal infiltrate.? No pleural effusions or pneumothorax.? ? Mediastinum:? Mediastinal contours appear normal.? Heart size is normal.? ? Bones and chest wall:? No suspicious bony lesions.? Overlying soft tissues appear unremarkable.? ? IMPRESSION:? No acute cardiopulmonary pathology. ? ? Dictated by: Amador Tomas M.D. on 10/13/2021 at 10:29 ? ? Approved by: Amador Tomas M.D. on 10/13/2021 at 10:29 ECG Data Attestation: I personally reviewed and interpreted this ECG as follows: Prior ECG tracings: available for review Interpretation: Sinus rhythm Ventricular rate is [address]-elevation in V2 [address] depression V2 Normal axis Normal QRS Normal QTC Comparison EKG from 09/14/2014. Sinus rhythm Ventricular rate [address] T wave changes Repeat EKG 1. Sinus rhythm Ventricular rate is 71 Normal QRS Normal QTC Unchanged from presentation EKG Repeat EKG 2. Sinus rhythm Ventricular rate of [address] changes unchanged from presentation EKG MDM Narrative Medical decision making narrative: Patient arrived appearing ill. Was diaphoretic. The chest discomfort radiating to his jaw and eventually into his left arm. No criteria on his EKG consistent with ST-elevation LA however does have concerns for ischemia. Troponin negative. Was given an aspirin. Started on heparin. Was given nitro. This did not improve his symptoms. He did have 1 episode of bradycardia and hypotension which was after his 2nd sublingual nitro however I am not convinced it was from this. This improved with fluids and time. He was having ectopy on the monitor to include PVCs and other appearance consistent with a left bundle branch block that was transitioning back to sinus rhythm. Discussed the case with Dr. camacho with cardiology who reviewed the EKGs and agrees with the above course of plan. Discussed the case with Dr. Curiel with Internal [facility] who accepts the patient in transfer. I did discuss the need transfer the patient and he expressed understanding and agreement Critical Care Time Critical Care Time Critical Care Time: Yes Total Critical Care Time: 45 Attestation: The high probability of a clinically significant, sudden or life threatening deterioration of the cardiovascular system(s) required my full and direct attention, intervention and personal management. The aggregate critical care time was [45] minutes. This time is in addition to time spent performing reported procedures but includes the following: [x] Data Review and interpretation [x] Patient assessment and monitoring of vital signs [x] Documentation [x] Medication orders and management Discharge Plan Departure Patient Disposition: [facility] Clinical Impression: Non-ST elevation LA (NSTEMI) Prescriptions: No Action ASPIRIN (Aspir-Low) 81 mg PO QDAY Qty: 0 0RF multivitamin [Multiple Vitamins] 1 EACH tablet 1 tab PO QDAY Qty: 0 0RF atorvastatin [Lipitor] 20 mg tablet 20 mg PO Q DAY Qty: 90 0RF Rx Instructions: please schedule annual exam prior to further refills. ketoconazole 2 % cream 1 applic TOP DAILY Qty: 60 2RF mupirocin 2 % ointment 1 applictn TOP BID PRN0RF (DME) ResMed AirSense 10 AutoSet CPAP Qty: 1 0RF Dose Instruction: As directed Label Comments: Pressure: 10-16 cwp DME: [employer] Rx Instructions: As directed Referrals: Elias Chery DO [Primary Care Provider] -
[2021-10-13 09:51] LABS: Add Manual Diff / Slide Review NO; Basophils Absolute Auto 0 /uL (0-100); Basophils Percent Auto 0.5 % (0-2); Eosinophils Absolute Auto 0 /uL (0-450); Eosinophils Percent Auto 0.8 % (2-4); Hematocrit 45.5 % (41-53); Hemoglobin 15.6 g/dL (13.5-17.5); Lymphocytes Absolute Auto 1400 /uL (1100-4500); Lymphocytes Percent Auto 24.1 % (25-40); Mean Corpuscular HGB Conc 34.3 % (30-36); Mean Corpuscular Hemoglobin 32.3 PG (26-34); Monocytes Absolute Auto 800 /uL (0-900); Neutrophils Absolute Auto 3600 /uL (1500-7000); Neutrophils Percent Auto 61.6 % (50-75); Platelet Count 127 X10^3/uL (150-400); Red Blood Cell Count 4.84 X10^6/uL (4.5-5.9); Red Cell Distribution Width 14.8 % (11.6-14.8); White Blood Cell Count 5.8 X10^3/uL (4.5-11.0)
[2021-10-13] MEDS: SODIUM CHLORIDE 0.9% 1,000 ML 125 ML IV (09:53)
[2021-10-13] MEDS: ASPIRIN 81 MG CHEW TAB 324 MG PO (09:53)
[2021-10-13] MEDS: NITROGLYCERIN 0.4 MG SL TAB SL ×2 (09:53→10:04)
[2021-10-13 10:08] LABS: Alanine Aminotransferase 46 IU/L (<50); Albumin 4.6 g/dL (3.5-5.0); Albumin Globulin Ratio 1.5 (1.0-2.8); Alkaline Phosphatase 79 U/L (38-126); Aspartate Aminotransferase 41 IU/L (17-59); BUN Creatinine Ratio 12.1 (6-22); Bilirubin Total 0.6 mg/dL (0.2-1.3); Blood Urea Nitrogen 15 mg/dL (9-20); Calcium 9.7 mg/dL (8.4-10.2); Carbon Dioxide 26 mmol/L (22-32); Chloride 105 mmol/L (98-107); Creatine Kinase 278 U/L (55-170); Estimated Glomerular Filt Rate 57.3 mL/min (>60); Globulin 3.1 g/dL (1.7-4.1); Glucose 108 mg/dL (80-110); Lipase 137 U/L (23-300); Sodium 139 mmol/L (137-145); Total Protein 7.7 g/dL (6.3-8.2)
[2021-10-13 10:09] LABS: Prothrombin Time 11.5 SECONDS (10.1-12.7)
[2021-10-13 10:11] LABS: PTT Partial Thromboplastin Tim 31 SECONDS (26.4-36.2)
[2021-10-13 10:14] LABS: COVID19 -Nasal RAPID POSITIVE (Negative)
[2021-10-13] MEDS: HEPARIN 5,000 UNIT/ML VIAL 5000 UNIT IV (10:20)
[2021-10-13 10:21] LABS: Troponin I 0.264 ng/mL (0.01-0.034)
[2021-10-13] MEDS: HEPARIN DRIP 25,000 UNIT/500 ML IV.SOLN 20 UNIT IV (10:21)
[2021-10-13 10:23] LABS: CKMB % Relative Index 1.5 % (1.5-5.0); Creatine Kinase MB 4.28 ng/mL (<2.37); HEMOLYSIS 31 (0-50)
--- NOTE | 2021-10-13 11:11 | PC.NURSE ---
pt recieved two nitroglycerin and stated no improvement in Chest pain. pain is a 3/10. bp [address] Peterson at bedside. Pt heart rate sinus bradycardia with runs of VT. stable. ekg changes as we are watching the monitor. Dr. Peterson aware and spoke with cardiology. we are working on transferring patient to cardiology, [facility] [place]
--- NOTE | 2021-10-13 13:56 | PC.NURSE ---
during hyptotension pt received 500 cc normal saline. bp returned to normal. md carbajal.
== END 2021-10-13 13:52 | disposition short-term general hospital (02) ==
PROVIDERS: Emergency Provider Emergency Medicine; PCP Family Medicine
DX: I21.4 Non-ST elevation (NSTEMI) myocardial infarction (principal); Z20.822 Contact with and (suspected) exposure to COVID-19
CPT/HCPCS: 36415; 71045; 80053; 82550; 82553; 83690; 84484; 85025; 85610; 85730; 87635; 93005; 96365; 96366; 96376; 99285; 99291; C9803; J1644

== ENCOUNTER 2022-01-17 17:35 | Emergency (ER) | payer MEDICARE, OTHER, SELFPAY ==
[2022-01-17] VITALS (12 sets, daily range): BP systolic 117–146; BP diastolic 75–87; PULSE 60–73; RESP 10–28; TEMP 36.8; O2SAT 95–98; BMI 34.2
--- NOTE | 2022-01-17 17:47 | DI.RAD.S_ITS ---
PROCEDURE: XR CHEST 1V INDICATIONS: chest pain TECHNIQUE: One view of the chest was acquired. COMPARISON: [facility], CR, XR CHEST 1V, 10/13/2021, 10:01. FINDINGS: Surgical changes and devices: None. Lungs and pleura: Reduced lung volumes. No consolidation, pleural effusions or pneumothorax. Mediastinum: Mediastinal contours appear normal. Heart size is normal. Bones and chest wall: No suspicious bony lesions. Elevation of the right diaphragm. IMPRESSION: No acute cardiopulmonary abnormality. Dictated by: Liban Burger M.D. on 01/17/2022 at 18:39 Approved by: Liban Burger M.D. on 01/17/2022 at 18:39
--- NOTE | 2022-01-17 18:21 | ED.CHESTPAIN ---
HPI - Chest Pain General Chief Complaint: Chest Pain Stated Complaint: chest pain rt side, sent by DR Chery Time Seen by Provider: 01/17/22 18:13 Source: patient Mode of arrival: Ambulatory Limitations: no limitations Limitations: no limitations History of Present Illness HPI narrative: This is a 71-year-old male with heart attack in October of 2021 which resulted in cardiac stents. Patient states he has had right shoulder pain at the blade over the last several weeks which occasionally becomes very intense and radiates to the right anterior chest sometimes it wraps around and sometimes goes straight through. Patient describes it as being along the edge of the blade, he patient states that when his massaged it seems like there is a little bit of numb feeling along that edge. He states that it can become quite intense and constant. He states it comes and goes nothing seems to exacerbate it movement does not seem to make it worse. Activity does not seem to change it. It seems to be alleviated with heating pad, sometimes with massage. It typically gets the worst at night and wakes him up from sleep. It is usually milder during the day. He and his have both noticed that sometimes if he 2 weeks it would be a flutter of the muscles under the skin. Patient notes that with his last heart attack he had discomfort in his jaw and in the middle of his left chest which he describes as a pressure with belching. Patient is on aspirin, Plavix, atorvastatin, lisinopril and metoprolol XL. He has not had his aspirin today he normally takes it in the evening. Besides cardiac stents no prior surgeries. No known drug allergies. No tobacco, occasional alcohol, no illicit. His primary care is Dr. Chery, his wheel borer is Dr. Quinonez. Related Data Home Medications Medication Instructions Recorded Confirmed ASPIRIN (Aspir-Low) 81 mg PO QDAY #0 tab 06/20/13 12/06/21 mupirocin 2 % topical ointment 1 applictn TOP BID PRN 01/06/19 12/06/21 ResMed AirSense 10 AutoSet CPAP #1 ea 10/07/19 12/06/21 hydrocortisone 1 % topical spray 1 applic TOPICAL BID PRN 10/21/21 12/06/21 (Anti-Itch (hydrocortisone)) Previous Rx's Medication Instructions Recorded ketoconazole 2 % topical cream 1 applic TOP DAILY #60 g 12/30/20 clopidogrel 75 mg tablet 75 mg PO DAILY #90 tab 11/10/21 lisinopril 5 mg tablet 5 mg PO DAILY #90 tab 11/10/21 metoprolol succinate 25 mg 25 mg PO DAILY #90 tab 11/10/21 tablet,extended release 24 hr atorvastatin 20 mg tablet (Lipitor) 80 mg PO Q DAY #360 tab 11/17/21 Allergies Allergy/AdvReac Type Severity Reaction Status Date / Time No Known Drug Allergies Allergy Verified 01/17/22 17:45 Review of Systems Review of Systems ROS Unobtainable: All systems reviewed & are unremarkable except as noted in HPI and below Patient History Medical History Actinic keratosis due to exposure to sunlight Actinic keratosis of left cheek Actinic keratosis of right side of forehead Arthritis of finger of right hand Cataracts, bilateral Colon polyps Coronary artery disease Excessive daytime sleepiness Hx of gonorrhea Hyperlipemia Non-ST elevation PA (NSTEMI) Non-ST elevation myocardial infarction (NSTEMI), subsequent episode of care Obstructive sleep apnea of adult Pain of finger joint Polio (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) Snoring Surgical History History of coronary artery stent placement Status post coronary artery stent placement Family History Family/Other Adopted Mother Diabetes mellitus Father Heart disease Congestive heart failure Social History marital status: details: to Shilpa, lives in [place] household members: spouse and adopted family (greatest challenge is ~15yoF from [facility]) lives independently: Yes caregiver/support person: No housing: house occupational status: employed (retired now, 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 HEENT: Head normocephalic, atraumatic, EOMI, pupils reactive, face symmetric, moist mucous membranes NECK: Supple, full range of motion CARDIOVASCULAR: Regular rate and rhythm without murmurs, rubs or gallops. RESPIRATORY: Breath sounds equal bilaterally, no wheezes rales or rhonchi. ABDOMEN: Soft, nontender. Normoactive bowel sounds all 4 quadrants. No guarding or rebound, rigidity, no mass : No CVA tenderness BACK: No cervical, thoracic or lumbar vertebral point tenderness. Patient has normal range of motion. Patient's gait is normal. Normal range of motion bilateral upper extremities. Patient has 2+ radial pulses bilaterally. Patient has some mild discomfort along the medial edge of his shoulder blade. Patient does not have any rash or skin changes. EXTREMITIES: Normal range of motion, no clubbing or edema. Neurovascularly intact NEUROLOGICAL: Cranial nerves II through XII grossly intact. Moving all extremities SKIN: Warm, dry, no petechiae, no rashes or lesions. Initial Vital Signs Initial Vital Signs: Vital Signs Temperature 98.2 F 01/17/22 17:41 Pulse Rate 73 01/17/22 17:41 Respiratory Rate 18 01/17/22 17:41 Blood Pressure 146/87 H 01/17/22 17:41 Pulse Oximetry 97 01/17/22 17:41 Course Orders Ordered: ED Orders 01/17/22 16:08 Complete Blood Count AUTO DIFF Stat Comprehensive Metabolic Panel Stat Lipase Stat Magnesium Stat Troponin & CK Cardiac Panel Stat 01/17/22 17:47 XR chest 1V Stat EKG-12 Lead Stat 01/17/22 18:00 Urine Culture Stat Urine Microscopic Stat 01/17/22 19:56 COVID19 -Nasal RAPID/Pre-Proc Stat Troponin I Stat 01/17/22 20:01 EKG-12 Lead Stat Reevaluation(s) Reevaluation #1: Patient states when he coughs seems to bring the pain on or make it worse. He denies symptoms currently and defers any pain meds. Time: 21:01 Vital Signs Vital signs: Vital Signs - 8 hr 01/17/22 17:41 01/17/22 18:02 01/17/22 18:03 Temperature 98.2 F Pulse Rate 73 73 73 Respiratory Rate 18 18 Blood Pressure 146/87 H 134/85 Pulse Oximetry 97 97 97 01/17/22 18:30 01/17/22 19:11 01/17/22 19:12 Temperature Pulse Rate 69 65 65 Respiratory Rate 10 L 28 H 16 Blood Pressure 138/75 133/81 Pulse Oximetry 95 96 97 01/17/22 19:30 Temperature Pulse Rate 63 Respiratory Rate 24 Blood Pressure 121/78 Pulse Oximetry 96 MDM - Chest Pain Lab Data Result diagrams: 01/17/22 16:08 01/17/22 16:08 Labs: Lab Results 01/17/22 01/17/22 01/17/22 Range/Units 16:08 16:08 18:00 WBC 4.4 L (4.5-11.0) X10^3/uL RBC 4.70 (4.5-5.9) X10^6/uL Hgb 15.0 (13.5-17.5) g/dL Hct 44.7 (41-53) % MCV 95.2 (80-100) fL MCH 31.9 (26-34) PG MCHC 33.5 (30-36) % RDW 15.5 H (11.6-14.8) % Plt Count 128 L (150-400) X10^3/uL Neut % (Auto) 61.4 (50-75) % Lymph % (Auto) 25.1 (25-40) % [place] % (Auto) 11.4 (3-14) % Eos % (Auto) 1.7 L (2-4) % Baso % (Auto) 0.4 (0-2) % Neut # (Auto) 2700 (6173-1961) /uL Lymph # (Auto) 1100 (8586-4106) /uL [place] # (Auto) 500 (0-900) /uL Eos # (Auto) 100 (0-450) /uL Baso # (Auto) 0 (0-100) /uL Sodium 139 (137-145) mmol/L Potassium 3.9 (3.4-5.1) mmol/L Chloride 105 (98-107) mmol/L Carbon Dioxide 27 (22-32) mmol/L BUN 16 (9-20) mg/dL Creatinine 1.40 H (0.66-1.25) mg/dL Estimated GFR 53 L (>60) mL/min BUN/Creatinine Ratio 11.4 (6-22) Glucose 122 H (80-110) mg/dL Calcium 9.2 (8.4-10.2) mg/dL Magnesium 2.0 (1.6-2.3) mg/dL Total Bilirubin 0.4 (0.2-1.3) mg/dL AST 36 (17-59) IU/L ALT 29 (<50) IU/L Alkaline Phosphatase 103 (38-126) U/L Total Creatine Kinase 388 H (55-170) U/L CK-MB (CK-2) 5.55 H (<2.37) ng/mL CK-MB (CK-2) Rel Index 1.4 L (1.5-5.0) % Troponin I 0.024 (0.01-0.034) ng/mL Total Protein 7.4 (6.3-8.2) g/dL Albumin 4.5 (3.5-5.0) g/dL Globulin 2.9 (1.7-4.1) g/dL Albumin/Globulin Ratio 1.6 (1.0-2.8) Lipase 158 (23-300) U/L Urine RBC 0-1/hpf (0-5/HPF) Urine WBC None seen (0-5/HPF) Urine Bacteria None seen (None) Ur Culture Indicated? Culture not indicate SARS-CoV-2 (PCR) (Negative) 01/17/22 01/17/22 Range/Units 19:56 19:56 WBC (4.5-11.0) X10^3/uL RBC (4.5-5.9) X10^6/uL Hgb (13.5-17.5) g/dL Hct (41-53) % MCV (80-100) fL MCH (26-34) PG MCHC (30-36) % RDW (11.6-14.8) % Plt Count (150-400) X10^3/uL Neut % (Auto) (50-75) % Lymph % (Auto) (25-40) % [place] % (Auto) (3-14) % Eos % (Auto) (2-4) % Baso % (Auto) (0-2) % Neut # (Auto) (4336-0419) /uL Lymph # (Auto) (8821-7431) /uL [place] # (Auto) (0-900) /uL Eos # (Auto) (0-450) /uL Baso # (Auto) (0-100) /uL Sodium (137-145) mmol/L Potassium (3.4-5.1) mmol/L Chloride (98-107) mmol/L Carbon Dioxide (22-32) mmol/L BUN (9-20) mg/dL Creatinine (0.66-1.25) mg/dL Estimated GFR (>60) mL/min BUN/Creatinine Ratio (6-22) Glucose (80-110) mg/dL Calcium (8.4-10.2) mg/dL Magnesium (1.6-2.3) mg/dL Total Bilirubin (0.2-1.3) mg/dL AST (17-59) IU/L ALT (<50) IU/L Alkaline Phosphatase (38-126) U/L Total Creatine Kinase (55-170) U/L CK-MB (CK-2) (<2.37) ng/mL CK-MB (CK-2) Rel Index (1.5-5.0) % Troponin I 0.025 (0.01-0.034) ng/mL Total Protein (6.3-8.2) g/dL Albumin (3.5-5.0) g/dL Globulin (1.7-4.1) g/dL Albumin/Globulin Ratio (1.0-2.8) Lipase (23-300) U/L Urine RBC (0-5/HPF) Urine WBC (0-5/HPF) Urine Bacteria (None) Ur Culture Indicated? SARS-CoV-2 (PCR) Negative (Negative) Urine Dip Bedside Urine Glucose Negative Bedside Urine Bilirubin - Negative Bedside Urine Ketone - Negative Urine Specific [place] 1.010 Bedside Urine Occult Blood + Bedside Urine pH 6.0 Bedside Urine Protein - Negative Bedside Urine Urobilinogen - Negative Bedside Urine Nitrite - Negative Bedside Urine Leukocytes - Negative Esterase Imaging Data Chest x-ray: Radiologist's Impression: [address] [address] XRay Report Signed Patient: Baldemar Andersen MR#: [id number] : 1950 Acct:[id number] Age/Sex: 71 / M Date of Service: 01/17/22 Loc: ED Accession Number: [id number] ?? Procedure: XR chest 1V Ordering Provider: Edwige Jones D.O. PROCEDURE:? XR CHEST 1V ? INDICATIONS:? chest pain ? TECHNIQUE:? One view of the chest was acquired.? ? COMPARISON:? [facility], CR, XR CHEST 1V, 10/13/2021, 10:01. ? FINDINGS:? ? Surgical changes and devices:? None.? ? Lungs and pleura:? Reduced lung volumes.? No consolidation, pleural effusions or pneumothorax.? ? Mediastinum:? Mediastinal contours appear normal.? Heart size is normal.? ? Bones and chest wall:? No suspicious bony lesions.? Elevation of the right diaphragm. ? IMPRESSION:? No acute cardiopulmonary abnormality. ? ? Dictated by: Liban Burger M.D. on 01/17/2022 at 18:39 ? ? Approved by: Liban Burger M.D. on 01/17/2022 at 18:39?? ECG Data Attestation: I personally reviewed and interpreted this ECG as follows: Prior ECG tracings: available for review Interpretation: Sinus rhythm rate of 70 CT 146 QRS of 102 and QTC of 423. No acute ST elevation or depression noted. Patient has prior from 10/13/2021 which does not show any acute changes. EKG [address] 150 QRS of 96 and QTC 404. No acute ST elevation or depression appreciated. No change from prior. MDM Narrative Medical decision making narrative: This is a 71-year-old male who presents with right shoulder blade pain that sometimes radiates to the anterior chest or wrapped around. On recheck he does note that cough or movement such as rolling on his right side does seem to make it worse. Has had an PA in October of 2021 and had cardiac stents. He has had at least 12 hours of pain with negative EKG without acute changes and no rising troponin. Suspect there may be a more musculoskeletal cause. He was unsure if he could try Tylenol we discussed this is option. We discussed return precautions all questions answered. Discharge Plan Departure Patient Disposition: Home Clinical Impression: Pain in right shoulder, Atypical chest pain Instructions: DI for Atypical Chest Pain Activity Restrictions/Additional Instructions: Follow-up with your physician for recheck. Please call to follow up. Continue home medications as prescribed You may take Tylenol up to a 1000 mg every 6 hours as needed for pain. You may continue to apply moist heat, massage to the affected area. Return for new or worsening symptoms, fevers, new or worsening chest pain, shortness of breath, persistent vomiting, passing out, changing chest pain, new swelling in her extremities or other new or concerning symptoms. Prescriptions: No Action ASPIRIN (Aspir-Low) 81 mg PO QDAY Qty: 0 0RF lisinopril 5 mg tablet 5 mg PO DAILY Qty: 90 0RF metoprolol succinate 25 mg tablet extended release 24 hr 25 mg PO DAILY Qty: 90 0RF clopidogrel 75 mg tablet 75 mg PO DAILY Qty: 90 0RF atorvastatin [Lipitor] 20 mg tablet 80 mg PO Q DAY Qty: 360 0RF ketoconazole 2 % cream 1 applic TOP DAILY Qty: 60 2RF mupirocin 2 % ointment 1 applictn TOP BID PRN0RF Anti-Itch (HC) 1 % aerosol,spray 1 applic topical BID PRN0RF (DME) ResMed AirSense 10 AutoSet CPAP Qty: 1 0RF Dose Instruction: As directed Label Comments: Pressure: 10-16 cwp DME: [facility] Rx Instructions: As directed Referrals: Elias Chery DO [Primary Care Provider] -
[2022-01-17 18:22] LABS: Add Manual Diff / Slide Review NO; Basophils Absolute Auto 0 /uL (0-100); Basophils Percent Auto 0.4 % (0-2); Eosinophils Absolute Auto 100 /uL (0-450); Eosinophils Percent Auto 1.7 % (2-4); Hematocrit 44.7 % (41-53); Lymphocytes Absolute Auto 1100 /uL (1100-4500); Lymphocytes Percent Auto 25.1 % (25-40); Mean Corpuscular HGB Conc 33.5 % (30-36); Mean Corpuscular Hemoglobin 31.9 PG (26-34); Mean Corpuscular Volume 95.2 fL (80-100); Monocytes Absolute Auto 500 /uL (0-900); Monocytes Percent Auto 11.4 % (3-14); Neutrophils Absolute Auto 2700 /uL (1500-7000); Neutrophils Percent Auto 61.4 % (50-75); Platelet Count 128 X10^3/uL (150-400); Red Cell Distribution Width 15.5 % (11.6-14.8); White Blood Cell Count 4.4 X10^3/uL (4.5-11.0)
[2022-01-17 18:29] LABS: Bacteria Urine None Seen; RBC Urine 0-1/HPF (0-5/HPF); WBC Urine None Seen (0-5/HPF)
[2022-01-17 18:37] LABS: Alanine Aminotransferase 29 IU/L (<50); Albumin 4.5 g/dL (3.5-5.0); Albumin Globulin Ratio 1.6 (1.0-2.8); Alkaline Phosphatase 103 U/L (38-126); Aspartate Aminotransferase 36 IU/L (17-59); BUN Creatinine Ratio 11.4 (6-22); Bilirubin Total 0.4 mg/dL (0.2-1.3); Blood Urea Nitrogen 16 mg/dL (9-20); Calcium 9.2 mg/dL (8.4-10.2); Carbon Dioxide 27 mmol/L (22-32); Chloride 105 mmol/L (98-107); Creatine Kinase 388 U/L (55-170); Estimated Glomerular Filt Rate 53 mL/min (>60); Globulin 2.9 g/dL (1.7-4.1); Glucose 122 mg/dL (80-110); HEMOLYSIS 18 (0-50); Lipase 158 U/L (23-300); Potassium 3.9 mmol/L (3.4-5.1); Sodium 139 mmol/L (137-145); Total Protein 7.4 g/dL (6.3-8.2)
[2022-01-17 18:48] LABS: Troponin I 0.024 ng/mL (0.01-0.034)
[2022-01-17 18:52] LABS: CKMB % Relative Index 1.4 % (1.5-5.0); Creatine Kinase MB 5.55 ng/mL (<2.37)
[2022-01-17 20:22] LABS: COVID19 -Nasal RAPID Negative (Negative)
[2022-01-17 20:34] LABS: Troponin I 0.025 ng/mL (0.01-0.034)
== END 2022-01-17 22:03 | disposition home or self-care (01) ==
PROVIDERS: Emergency Medicine; Emergency Provider Emergency Medicine; PCP Family Medicine
DX: M25.511 Pain in right shoulder (principal); R07.89 Other chest pain; I25.2 Old myocardial infarction; Z20.822 Contact with and (suspected) exposure to COVID-19
CPT/HCPCS: 36415; 71045; 80053; 81003; 81015; 82550; 82553; 83690; 83735; 84484; 85025; 87086; 87635; 93005; 99284; C9803

== ENCOUNTER 2022-05-08 10:15 | Outpatient (RCR) | payer MEDICARE, OTHER, SELFPAY | END 2022-05-08 15:15 | LOC: CAR 10:15 | PROVIDERS: PCP Family Medicine; Referring Provider Internal Medicine Cardiovascular Disease; Visit Provider Internal Medicine Cardiovascular Disease | DX: I21.4 Non-ST elevation (NSTEMI) myocardial infarction (principal) | CPT/HCPCS: 93798 ==

== ENCOUNTER → 2022-05-12 06:55 | Outpatient (CLI) | payer MEDICARE, OTHER, SELFPAY ==
[2022-05-12 09:42] LABS: BUN Creatinine Ratio 12.7 (6-22); Blood Urea Nitrogen 16 mg/dL (9-20); Carbon Dioxide 29 mmol/L (22-32); Chloride 102 mmol/L (98-107); Cholesterol 121 mg/dL (140-199); Creatine Kinase 355 U/L (55-170); Estimated Glomerular Filt Rate > 60 mL/min (>60); Glucose 105 mg/dL (80-110); HDL Cholesterol 58 mg/dL (40-60); HEMOLYSIS < 15 (0-50); LDL Cholesterol Calculated 46 mg/dL (<100); Potassium 4.3 mmol/L (3.4-5.1); Sodium 137 mmol/L (137-145); Triglycerides 84 mg/dL (35-150)
[2022-05-17 17:49] LABS: Aldolase 5.1 U/L (3.3-10.3)
== END ==
PROVIDERS: PCP Family Medicine; Referring Provider Internal Medicine Cardiovascular Disease; Visit Provider Internal Medicine Cardiovascular Disease
DX: E78.5 Hyperlipidemia, unspecified (principal); R74.8 Abnormal levels of other serum enzymes; N28.9 Disorder of kidney and ureter, unspecified
CPT/HCPCS: 36415; 80048; 80061; 82085; 82550

== ENCOUNTER → 2022-08-08 08:39 | Outpatient (CLI) | payer MEDICARE, OTHER, SELFPAY ==
[2022-08-08 10:13] LABS: Cholesterol 164 mg/dL (140-199); HDL Cholesterol 59 mg/dL (40-60); LDL Cholesterol Calculated 82 mg/dL (<100); Triglycerides 114 mg/dL (35-150)
== END ==
PROVIDERS: PCP Family Medicine; Referring Provider Internal Medicine Cardiovascular Disease; Visit Provider Internal Medicine Cardiovascular Disease
DX: E78.5 Hyperlipidemia, unspecified (principal)
CPT/HCPCS: 36415; 80061